=== PATIENT | female | born 2000 | race Caucasian/White ===

== ENCOUNTER 2020-08-22 17:03 | Emergency (ER) | payer BC, OTHER, SELFPAY ==
[2020-08-22] VITALS (14 sets, daily range): BP systolic 112–131; BP diastolic 63–89; PULSE 62–114; RESP 11–23; TEMP 36.9; O2SAT 94–98
[2020-08-22] MEDS: FAMOTIDINE 20 MG/2 ML VIAL IV PUSH (17:21)
[2020-08-22] MEDS: EPINEPHrine HCL INJ 1 MG/ML AMPUL 0.3 MG IM (17:21)
[2020-08-22] MEDS: methylPREDNISolone SOD SUCC 125 MG VIAL IV PUSH (17:21)
[2020-08-22] MEDS: ALBUTEROL SULFATE NEB 2.5 MG/0.5 ML INH 5 MG INHALATION (17:51)
[2020-08-22] MEDS: IPRATROPIUM BR 0.02% INH SOLN 0.5 MG/2.5 ML VIAL INHALATION (17:51)
--- NOTE | 2020-08-22 18:46 | ED.ALLEREA ---
HPI - Allergic Reaction General Chief complaint: Allergic Reaction Stated complaint: allergic reaction Time Seen by Provider: 08/22/20 17:06 Source: patient Mode of arrival: ambulatory Limitations: no limitations History of Present Illness HPI narrative: This patient is a 19 year old female who presents for evaluation of an allergic reaction. She states just prior to arrival she developed itching, increase warmth and shortness of breath. She states she just finished eating lunch but she did not eat anything out of the ordinary. She denies working any new material. She states she started feeling warm all over. She has itching to her eye and face. She has hives all over. She denies any allergies. She states when she is around her friend's cat she developed stuffy nose and congestion but she has never developed hives. She is not aware of any pet contacts. 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 Related Data Allergies Allergy/AdvReac Type Severity Reaction Status Date / Time No Known Allergies Allergy Verified 08/22/20 17:21 Review of Systems Review of Systems: All systems reviewed & are unremarkable except as noted in HPI and below PMFSH Past Medical History Medical History (Updated 08/23/20 @ 00:00 by Felicia Dashelbie) Patient denies medical problems Surgical History Surgical History (Updated 08/22/20 @ 18:53 by Ariela Olivares MD) No pertinent past surgical history Social History Social History (Updated 08/22/20 @ 18:53 by Ariela Olivares MD) Smoking status: Never smoker Exam Const: General: alert Orientation/consciousness: patient oriented x3 HENMT: Other: external ears red and mildly swollen, facial hives Eyes: Pupils: Equal, round and reactive pupils present EOM: EOMs intact bilaterally Resp: Effort & Inspection: normal respiratory effort Auscultation: wheezes Other: able to speak in complete sentences Cardio: Rate: tachycardic Rhythm: regular rhythm Heart sounds: no murmurs GI: GI Palp: Yes Soft to palpation, No Tenderness to palpation present (GI) and No Guarding due to palpation present (GI) Auscultation: normal bowel sounds Skin: Other: diffuse hives Neuro: General: patient oriented x3 and moves all extremities Course Reevaluation(s) Reevaluation #1: Patient states she feels better. Her lungs are clear. I discussed with patient and her mother that we will monitor longer. Date: 08/22/20 Time: 18:54 Reevaluation #2: Patient feels better. hives have resolved. She has no wheezing or shortness of breath. No airway issues Date: 08/22/20 Time: 20:01 Vital Signs Vital signs: Vital Signs Pulse Rate 114 H 08/22/20 17:08 Respiratory Rate 13 08/22/20 17:08 Blood Pressure 131/82 08/22/20 17:08 Pulse Oximetry 94 08/22/20 17:08 Temperature 98.4 F 08/22/20 17:11 Pulse Rate 78 08/22/20 20:00 Respiratory Rate 16 08/22/20 20:00 Blood Pressure 125/63 08/22/20 20:00 Pulse Oximetry 97 08/22/20 20:00 Discharge Plan Discharge Clinical Impression: Allergic reaction, Anaphylaxis Patient Disposition: Home, Self-Care Condition: Stable Instructions: Anaphylaxis (ED), Allergies (ED) Additional Instructions: Today you were evaluated for an allergic reaction. If you develop itching or rash again you can take benadryl or medication such as claritin , noemy or zyrtec. You can take 50 mg benadryl every 6 hours as needed for itching or rash. If you develop difficulty breathing, chest pain, tongue or lips swelling return to ER immediately . Prescriptions: New prednisone 50 mg tablet 50 mg PO DAILY Qty: 6 RF: 0 famotidine [Pepcid] 20 mg tablet 20 mg PO DAILY Qty: 14 RF: 0 epinephrine [EpiPen] 0.3 mg/0.3 mL auto-injector 0.3 ml IM ONCE Qty: 1 RF: 0 Follow-up/Referrals: PHYSICIAN,CORK GRINDER [Primary Care Provider] - Ever Yo MD [Physician] -
== END 2020-08-22 20:30 | disposition home or self-care (01) ==
PROVIDERS: Emergency Provider General Practice
DX: T78.2XXA Anaphylactic shock, unspecified, initial encounter (principal)
CPT/HCPCS: 94640; 96372; 96374; 96375; 99284; J0171; J2930

== ENCOUNTER 2022-06-11 06:59 | Observation (INO) | payer OTHER, MEDICAID, SELFPAY ==
[2022-06-11 07:15] VITALS: BP 119/68; PULSE 62
[2022-06-11 07:20] VITALS: BMI 23.9
[2022-06-11 07:30] VITALS: BP 110/68; PULSE 63
[2022-06-11 07:45] VITALS: BP 128/74; PULSE 71
[2022-06-11 08:00] VITALS: BP 118/78; PULSE 72
--- NOTE | 2022-06-11 08:22 | OBADM ---
This patient, Toña Dejesus, admitted to the OB room OB Post [facility] for observation. Patient/family oriented to hospital policies and general routines including ID bracelet, bed and alarms, visiting hours, pain management, procedures, bathroom and other care routines, personal items, smoking policy, room service/diet, and visiting hours. Patient/Family are encouraged to report perceived risks to care and to ask questions if they do not understand what they are told or what they should do.
[2022-06-11 08:37] LABS: Appearance Urine Clear (Clear); Bilirubin Urine Negative (Negative); Blood Urine 1+ (Negative); Color Urine Yellow (Yellow); Glucose Urine UA Negative (Negative); Ketones Urine Negative (Negative); Leukocyte Esterase Ur 1+ LEU/UL (NEGATIVE); Nitrate Urine Positive (Negative); Protein Urine Negative (Negative); Urobilinogen Urine 0.2 mg/dL (<2.0); pH Urine 6.5 (5.0-9.0)
[2022-06-11 08:42] LABS: Bacteria Urine Trace /hpf; Mucus Urine Rare /lpf; Squamous Epithelial Cell Urine Few /hpf (Few); WBC Urine 21-30 /hpf (0-3)
[2022-06-11 08:45] LABS: Add Urine Microscopic? YES
--- NOTE | 2022-06-12 16:18 | PM.OBTRLD ---
OB - Triage/Final Diagnosis Visit Information Reason for evaluation: threatened labor Comments/Additional reasons for admission: I have assessed the risk for this patient, Toña Dejesus, and determined that she would benefit from observation care. Evaluation Laboratory results: Laboratory Tests 06/11/22 07:33 Urine Color Yellow Urine Appearance Clear Urine pH 6.5 Ur Specific [place] 1.020 Urine Protein Negative Urine Glucose (UA) Negative Urine Ketones Negative Ur Blood (Man) 1+ H Urine Nitrate Positive Urine Bilirubin Negative Urine Urobilinogen 0.2 Ur Leukocyte Esterase 1+ H Urine RBC 6-10 H Urine WBC 21-30 H Ur Squamous Epith Cells Few Urine Bacteria Trace Urine Mucus Rare
== END 2022-06-11 09:06 | disposition home or self-care (01) ==
PROVIDERS: Admitting Provider Obstetrics & Gynecology; Visit Provider Obstetrics & Gynecology
DX: O47.02 False labor before 37 completed weeks of gestation, second trimester (principal); Z3A.24 24 weeks gestation of pregnancy
CPT/HCPCS: 81001; 87086; 87088; G0378; G0379

== ENCOUNTER 2022-10-02 16:48 | Inpatient (IN) | payer OTHER, MEDICAID, SELFPAY ==
[2022-10-02] VITALS (26 sets, daily range): BP systolic 115–139; BP diastolic 58–92; PULSE 47–76; TEMP 36.6; BMI 27.6
--- NOTE | 2022-10-02 17:39 | LDADM ---
This patient, Toña Dejesus, was admitted to Labor/Delivery/Recovery 104 on 10/02/22 at 16:48. Plans for labor, pain management and were discussed with patient. Patient/family oriented to hospital policies and general routines including ID bracelet, bed and alarms, visiting hours, pain management, procedures, bathroom and other care routines, personal items, smoking policy, room service/diet and guest tray routines, security routines, and visiting hours. Patient/Family are encouraged to report perceived risks to care and to ask questions if they do not understand what they are told or what they should do. See OBIX for further documentation.
[2022-10-02 17:41] LABS: Basophils Percent Auto 0.2 % (0.2-1.2); Eosinophils Absolute Auto 0.1 K/mm3 (0-0.3); Hematocrit 29.2 % (37.0-47.0); Hemoglobin 10.1 g/dL (12.0-15.0); Immature Granulocyte Absolute 0.03 K/mm3 (0.00-0.031); Immature Granulocyte Percent A 0.3 % (0-0.5); Lymphocytes Absolute Auto 1.72 K/mm3 (0.9-3.2); Lymphocytes Percent Auto 17.3 % (18.3-44.2); Mean Corpuscular HGB Conc 34.6 g/dl (32-36); Mean Corpuscular Hemoglobin 30.9 pg (26-34); Mean Corpuscular Volume 89.3 fl (80-100); Mean Platelet Volume 9.7 fl (7.4-10.4); Monocytes Absolute Auto 1.1 K/mm3 (0.1-0.6); Monocytes Percent Auto 11.3 % (2.6-8.5); Neutrophils Percent Auto 69.9 % (45.5-73.1); Platelet Count Result 240 k/mm3 (150-375); Red Blood Count 3.27 M/mm3 (4.2-5.4); Red Cell Distribution Width 13.2 % (11.5-14.5)
[2022-10-02] MEDS: DINOPROSTONE 10 MG VAG INSERT VAGINAL (17:56)
[2022-10-02] MEDS: LACTATED RINGERS 1,000 ML 125 ML IV CONT (23:25)
[2022-10-03] VITALS (195 sets, daily range): BP systolic 75–151; BP diastolic 51–104; PULSE 32–131; RESP 14–16; TEMP 36.1–36.8; O2SAT 90–100
[2022-10-03] MEDS: fentaNYL CITRATE INJ (*CRX) 100 MCG/2 ML VIAL 50 MCG IV PUSH (00:06)
[2022-10-03] MEDS: LACTATED RINGERS 1,000 ML 125 ML IV CONT (02:42)
--- NOTE | 2022-10-03 02:51 | WPDANESEPPF ---
Anes - Initial Pre Proc Eval Procedure: Labor Epidural Date/Time: 10/03/22 02:51 Surgeon: Dereck Cancino MD Pre Op Diagnosis: Pain c contractions Pre Op Diagnosis: Induction of Labor Patient Data Age: 22 Gender: F Height: 1.75 m Weight: 85 kg Last Vital Signs Temp 36.2 C L 10/03/22 02:28 Pulse 60 10/03/22 02:46 BP 129/75 10/03/22 02:46 O2 Del Method Room Air 10/02/22 17:39 Allergies Allergy/AdvReac Type Severity Reaction Status Date / Time No Known Allergies Allergy Verified 08/22/20 17:21 Home Medications Medication Instructions Recorded Confirmed Type epinephrine 0.3 mg/0.3 mL 0.3 ml IM ONCE #1 ea 08/22/20 Rx injection, auto-injector (EpiPen) prenat.vits,viri,[id number] 1 tablet PO DAILY 09/06/22 09/06/22 History Laboratory Tests 10/02/22 10/02/22 10/02/22 17:13 17:13 17:13 WBC 10.0 K/mm3 K/mm3 (4.5-10.0) RBC 3.27 M/mm3 L M/mm3 (4.2-5.4) Hgb 10.1 g/dL L g/dL (12.0-15.0) Hct 29.2 % L % (37.0-47.0) MCV 89.3 fl fl (80-100) MCH 30.9 pg pg (26-34) MCHC 34.6 g/dl g/dl (32-36) RDW 13.2 % % (11.5-14.5) Plt Count 240 k/mm3 k/mm3 (150-375) MPV 9.7 fl fl (7.4-10.4) Immature Gran % (Auto) 0.3 % % (0-0.5) Neut % (Auto) 69.9 % % (45.5-73.1) Lymph % (Auto) 17.3 % L % (18.3-44.2) [place] % (Auto) 11.3 % H % (2.6-8.5) Eos % (Auto) 1.0 % % (0-4.4) Baso % (Auto) 0.2 % % (0.2-1.2) Lymph # (Auto) 1.72 K/mm3 K/mm3 (0.9-3.2) [place] # (Auto) 1.1 K/mm3 H K/mm3 (0.1-0.6) Eos # (Auto) 0.1 K/mm3 K/mm3 (0-0.3) Baso # (Auto) 0.0 K/mm3 K/mm3 (0.0-0.1) Abs Immat Gran (auto) 0.03 K/mm3 K/mm3 (0.00-0.031) Absolute Neuts (auto) 7.0 K/mm3 H K/mm3 (1.3-6.7) Absolute Nucleated RBC 0.0 K/mm3 K/mm3 (0.0-0.012) Nucleated RBC % 0.0 % % (0.0-0.2) RPR Pending Blood Type O Positive Antibody Screen Negative Patient hx anesthesia problems: none Family hx anesthesia problems: none Results Review: All pre-operative results and documents have been reviewed as part of the pre-operative evaluation. [facility]LY [facility] Past Medical History Medical History Patient denies medical problems Surgical History Surgical History No pertinent past surgical history Social History Social History Smoking status: Never smoker Substance use: current Last use: 09/05/2022 Lack of Transportation: No Lack of Food: Never True Current Housing: I Have Housing Concerned About Future Housing: No Difficulty Paying Gas/Electric Bills: No Difficulty Paying for Meds: No Currently Unemployed: No Education: Don't Know Difficulty w/ Childcare or Family Care: No Spiritual care concerns: No Anes - Eval Final PreProcedure Day of Procedure 10/03/22 02:51 Patient weight: normal Airway: Mallampati scale class II Neurological: alert and oriented Last oral intake: 2 hours ASA classification: II Emergent: no Anesthetic plan: proceed Anesthesia type and monitoring: regional spinal Results Review: All pre-operative results and documents have been reviewed as part of the pre-operative evaluation. Informed Consent: The patient's anesthetic plan and its attendant risks and benefits were discussed with the patient/family/POA. Questions were solicited and answers provided to the satisfaction of the patient/family/POA.
--- NOTE | 2022-10-03 03:15 | WPDANESEPN ---
Anes - Epidural Procedure Note Date/Time: 10/03/22 03:15 Consent: I have discussed with the patient/family/POA, the placement of an epidural catheter and the use of epidural narcotic/local anesthetic for labor analgesia and/or postoperative pain management, including associated potential risks, benefits, complications and side effects. I have discussed alternative methods of labor analgesia and/or postoperative pain management. The patient/family/POA, understand(s) and wish(es) to proceed with epidural narcotic/local anesthetic for labor analgesia and/or postoperative pain management. Time-Out: A pre-procedural Time-Out was completed immediately before starting the procedure and confirmed: Patient Identification, Site, Procedure, Patient Position and the Availability of Requisite Equipment. Clinical Indications: Pain c contractions Epidural Insertion Note Patient position: sitting Skin prep: chlorhexidine and sterile drape Needle: 18g Tuohy-Schliff Catheter: 20g Unstyleted Technique: Loss of resistance. Level of insertion: L3/4 Catheter skin yudy (cm): 5 Length in epidural space (cm): 10 Skin anesthesia: lidocaine 1% Test dose: 1.5% Lidocaine with [id number] Epi, negative for subarachnoid Inj and negative for intravascular Inj Time of test dose: 03:04 Observations: tolerated well Complications: none
[2022-10-03] MEDS: OXYTOCIN 30 UNITS/NS 500 ML 30 UNITS/500 ML BAG 6 UNITS IV CONT (04:25)
[2022-10-03 08:14] LABS: Rapid Plasma Reagin Non-Reactive (NonReactive)
--- NOTE | 2022-10-03 08:50 | WPDOBADMIT ---
Obstetrics - Admit Note Admission Note: record reviewed. Additions to the history and/or subsequent changes in the physical findings follow. 22 y/o G1 at 40 2/7 weeks here for induction. Cervidil overnight. Had SROM at 2230. Now comfortable with epidural. Receiving oxytocin. GBS neg. AVSS NST reactive TOCO: contractions every 2-3 min ABD soft, nontender, gravid, vertex EXT nontender Cervix 6/80/0 A: IUP at term. P: Oxytocin. Anticipate .
--- NOTE | 2022-10-03 12:17 | PM.OBPNLAB ---
Pain Control Date/time seen: 10/03/22 12:17 Comments: Feeling more pressre. Pelvic Exam Dilation (cm): 10 Effacement (%): 100 station: +1 Contractions Contraction frequency: 3 Contraction pattern: Regular Status status: Category l Assessment and Plan Comments: Begin pushing.
--- NOTE | 2022-10-03 13:30 | PM.OBPRVD ---
OB - Delivery Note Procedure Delivery date: 10/03/22 Procedure: Induction of labor with Induction method: Per Cervidil Protocol Delivery augmentation: Pitocin Delivery monitor: External FHT and External Uterine Route of delivery: Laceration Description: Perineal - 2nd Degree Delivery repair: vicryl (3-0) Specimen: Yes (cord blood, placenta) Quantitative Blood Loss (ml): 220 Anesthesia type: Epidural Disposition: PACU Complications: None Narrative: 22 y/o G1 at 40 2/7 weeks gestation who presented to the hospital for induction of labor. Cervidil was placed. She had SROM of clear fluid. Cervidil was withdrawn and oxytocin was administered intravenously. She received an epidural for pain control. Her labor progressed and her cervix dilated completely. She pushed with good effort and delivered the 's head to the perineum. A loose nuchal cord was splinted and the body delivered. The cord was reduced and the nose and mouth were bulb suctioned. After a delay, the cord was clamped and cut. The infant was handed off the field. Cord blood was collected. The placenta delivered spontaneously and was grossly normal in appearance. The usual 3 vessel cord was noted. A second degree midline perineal laceration was sustained. This was reapproximated using 3 0 Vicryl in the usual layered fashion. Excellent hemostasis resulted as did excellent reapproximation of the normal anatomy. Needle and instrument counts were correct. The patient was taken to recovery room in stable condition. The infant went to the nursery in stable condition. I was present and scrubbed for the entire delivery. [place] Baby Date of : 10/03/22 Time of : 13:18 Weeks of gestation at delivery: 40 gender: Female Weight (pounds): 8 Weight (ounces): 4 presentation: vertex position: Left Occiput Anterior Placenta delivery description: Spontaneous and Normal Configuration Cord Vessel Description: 3 Vessels, Nuchal Cord and Delayed Cord Clamping score one minute: 9 score five minutes: 9
--- NOTE | 2022-10-03 13:33 | PM.OBDSVD ---
DS: Admitting Diagnosis Discharge Date 10/05/22 Admitting Diagnosis IUP at 40 weeks DS: Discharge Diagnosis Discharge Diagnosis (1) (normal spontaneous vaginal delivery): Code(s): O80 - Encounter for full-term uncomplicated delivery Status: Acute OB - DS: Summary OB Procedures : None OB Procedures Intrapartum: Spontaneous Vag Delivery OB Procedures: : None Time Spent with Patient Time attestation: Total time spent providing and/or coordinating discharge services: DS: Data Data Completed and Pending Labs on day of discharge: Labs from last 24 hours 10/02/22 10/02/22 10/02/22 17:13 17:13 17:13 WBC 10.0 RBC 3.27 L Hgb 10.1 L Hct 29.2 L MCV 89.3 MCH 30.9 MCHC 34.6 RDW 13.2 Plt Count 240 MPV 9.7 Immature Gran % (Auto) 0.3 Neut % (Auto) 69.9 Lymph % (Auto) 17.3 L [place] % (Auto) 11.3 H Eos % (Auto) 1.0 Baso % (Auto) 0.2 Lymph # (Auto) 1.72 [place] # (Auto) 1.1 H Eos # (Auto) 0.1 Baso # (Auto) 0.0 Abs Immat Gran (auto) 0.03 Absolute Neuts (auto) 7.0 H Absolute Nucleated RBC 0.0 Nucleated RBC % 0.0 RPR Non-reactive Blood Type O Positive Antibody Screen Negative Discharge Plan Discharge Attending physician on discharge: Jeff Fong Discharging Clinician: Jeff Fong Patient Disposition: Home, Self-Care Activity: pelvic rest Diet: regular Discharge Instructions: Call or return if temperature above 100.4? F, increased abdominal pain, increased vaginal bleeding or any new problems. Stand Alone Forms: General Discharge Information Follow-up/Referrals: Dereck Lewis MD [Physician] - 6 Weeks Discharge Medications: New ibuprofen 600 mg tablet 600 mg PO Q6H PRN (Reason: cramps) Qty: 30 0RF ferrous sulfate 325 mg (65 mg iron) tablet 325 mg PO DAILY Qty: 30 0RF Continued #2 Tablet 1 tablet PO DAILY epinephrine [EpiPen] 0.3 mg/0.3 mL auto-injector 0.3 ml IM ONCE Qty: 1 0RF Rx Instructions: as a single dose; may repeat once Date of admission: 10/02/22 16:48 Primary Care Provider: UNKNOWN,DOCTOR Admitting Provider: Dereck Lewis Attending physician on admission: Dereck Lewis Condition: Stable
[2022-10-03] MEDS: OXYTOCIN 30 UNITS/NS 500 ML 30 UNITS/500 ML BAG 125 UNITS IV CONT (13:35)
[2022-10-03] MEDS: LORATADINE 10 MG TABLET (14:53)
[2022-10-03] MEDS: IBUPROFEN 600 MG TABLET PO (15:57)
[2022-10-03] MEDS: ACETAMINOPHEN 325 MG TABLET 650 MG PO (18:37)
[2022-10-04] MEDS: ACETAMINOPHEN 325 MG TABLET 650 MG PO ×2 (03:11→16:42)
[2022-10-04 04:52] LABS: Hematocrit 26.4 % (37.0-47.0); Hemoglobin 8.8 g/dL (12.0-15.0)
[2022-10-04 08:00] VITALS: PULSE 62; RESP 18; O2SAT 100
[2022-10-04 08:05] VITALS: BP 120/68; PULSE 62; RESP 18; TEMP 37.3; O2SAT 100
[2022-10-04] MEDS: DOCUSATE SODIUM 100 MG CAPSULE PO ×2 (08:11→16:42)
[2022-10-04] MEDS: IBUPROFEN 600 MG TABLET PO ×3 (08:11→20:03)
[2022-10-04] MEDS: MULTIVIT/MIN/PREN/FOL AC/IRON TABLET 1 TAB PO (08:11)
[2022-10-04] MEDS: POLYSACCHARIDE IRON COMPLEX 150 MG CAPSULE PO ×2 (08:11→16:42)
--- NOTE | 2022-10-04 08:51 | PM.OBPNVD ---
OB - PN: Subj Subjective Date/time seen: 10/04/22 08:51 Narrative: Pain OK. OB - PN: Obj Data Labs 10/04/22 03:17 Labs: Laboratory Results - last 24 hr 10/04/22 03:17 Hgb 8.8 L Hct 26.4 L OB - PN A/P Plan Comments: A: PPD#1, doing well. P: Routine care. Exam Psych: Other: AVSS ABD soft, nontender, fundus firm EXT nontender
--- NOTE | 2022-10-04 09:30 | WPDANLDPN2 ---
Anes-Prog Note L&D Date/Time: 10/04/22 09:30 Comfortable throughout: labor and delivery Neuraxial method: epidural Epidural/Spinal procedure site: tender Neuro status: Neuro function grossly intact. Cardiovascular status: normal Respiratory status: normal Airway patency: baseline Mental status: baseline Post-Op hydration status: normal Vital Signs: Last Vital Signs Temp 36.5 C 10/03/22 18:34 Pulse 69 10/03/22 18:34 Resp 16 10/03/22 18:34 BP 126/82 10/03/22 18:34 Pulse Ox 100 10/03/22 16:00 O2 Del Method Room Air 10/03/22 16:00 Pain score (VAS): 3/10 I/O: Intake & Output 10/03/22 10/04/22 10/04/22 23:59 07:59 15:59 Intake Total 500 Balance 500 Post-procedural complaints: none Patient feedback: Patient satisfied with anesthetic care.
[2022-10-04 12:32] VITALS: BP 122/67; PULSE 68; RESP 16; TEMP 36.8; O2SAT 100
[2022-10-04 13:19] VITALS: PULSE 68; RESP 16; O2SAT 100
[2022-10-04] MEDS: BENZOCAINE 20% AER SPR (*SP) 56 GM CAN 1 SPRAY TOPICAL (14:10)
[2022-10-04] MEDS: WITCH HAZEL 40 PADS 1 PAD TOPICAL (14:10)
[2022-10-04] MEDS: LANOLIN (LANSINOH) 7.5 GM CREAM 1 APPLIC TOPICAL (14:10)
--- NOTE | 2022-10-04 16:39 | PC.NURSE ---
[id number] Introductions were made, then consulted with patient to assess needs related to . Mother led the conversation with her?plans to feed?her infant and the?experience so far. Resources provided for inpatient and outpatient services with the feeding sheet, mom/baby guide and name written on the white board. Mother voiced understanding of information and will call if there is a request for assistance. Reported to the primary RN. 1352 -Purposefully rounded. Mother is in the restroom. Father of baby will have her call later after skin to skin time with infant on mother showing feeding cues or not waking to breastfeed. [phone] Patient called RN to the room. We discussed and I answered questions and concerns. After infant demonstrated feeding cues infant was encouraged to the breast by mother with cross cradle positioning, then switched to cradle hold. Mother verbalized understanding of how to visualize suck/swallow ratios and listen for drinking at the breast. Infant was able to maintain latch without discomfort to mother. Nipple care reviewed with optimal latch and good positioning. Reminding mother of comfort measures of healing with a warm and wet washcloth to rinse breast, then leave open to air-dry as needed. Reviewed good handwashing when or touching the breast/nipples to prevent infection. Resources used to facilitate learning were used with the tool, mom and baby guide. Mother voiced understanding of skin to skin, stimulating with massage touch, responsive feedings, hand expressed colostrum, talking to infant to encourage if it has been 2 -2.5 hours since the start of the last , to call if does not latch, or if there is discomfort with . Resources provided for inpatient/outpatient with business card, feeding sheet and the mom/baby guide. Parents voiced understanding of information, demonstrated learning and will call if there is a request for assistance. Reported to the primary RN.
[2022-10-04 19:15] VITALS: BP 125/87; PULSE 76; RESP 16; TEMP 36.7
--- NOTE | 2022-10-04 19:15 | PC.NURSE ---
Patient instructed to view the discharge video Mother & Baby Care, The First Two Weeks . Patient was given the opportunity and encouraged to ask questions. Patient verbalized understanding of information shared and has been given the mother/baby guide for home reference.
[2022-10-05] MEDS: IBUPROFEN 600 MG TABLET PO ×2 (04:27→11:44)
[2022-10-05] MEDS: POLYSACCHARIDE IRON COMPLEX 150 MG CAPSULE PO (07:57)
[2022-10-05] MEDS: MULTIVIT/MIN/PREN/FOL AC/IRON TABLET 1 TAB PO (07:57)
[2022-10-05] MEDS: DOCUSATE SODIUM 100 MG CAPSULE PO (07:57)
[2022-10-05 08:00] VITALS: PULSE 51; RESP 18; O2SAT 100
[2022-10-05 08:20] VITALS: BP 132/85; PULSE 51; RESP 18; TEMP 36.6; O2SAT 100
--- NOTE | 2022-10-05 11:59 | PM.OBPNVD ---
OB - PN: Subj Subjective Date/time seen: 10/05/22 11:59 Narrative: Pain OK. Would like to go home. OB - PN: Obj Data Labs 10/04/22 03:17 OB - PN A/P Plan Comments: A: PPD#2, doing well. P: Home to f/u 6 weeks. Exam Psych: Other: AVSS ABD soft, nontender, fundus firm EXT nontender
--- NOTE | 2022-10-05 12:57 | PC.NURSE ---
[id number] RN was consulted to the room to assist with latching that is sleepy. Mother states there was a at 0800 for 10 min with no pain. Reviewed S2S, stimulation and attempted to latch infant at the breast. Infant holds the nipple in the mouth. Infant is content with hands open. Mother was encouraged to placed infant S2S and call when feeding cues are visualized. [id number] Mother led the conversation with her experience and plan to feed her so far and her ability to independently latch infant optimally without discomfort. Reminded parents to use good handwashing technique to prevent infection. Mother is feeding appropriately for growth of infant and understands stimulating to eat if needed. has had adequate feedings in the last 24 hours meets the outcomes for weight, output and jaundice at this time. Mother states she is confident to continue effectively her infant at home. We discussed the output needed since it has been almost 12 hours since the last void. We discussed milk production expectations, however; not guaranteed. We consulted together with father of baby and maternal mother on how to make sure is swallowing at the breast, optimal positioning at the breast, signs of an effective latch and to encouraged a deep latch with gentle hand compression to encourage more milk swallows aiming for every two hours with support persons giving her a 4-5 hour rest period if possible at least once in a 24 hour period. Mother states she has two outside resources in the community and RN encouraged reaching out to them for support. Reinforced understanding of milk production, transition of milk, signs of adequate intake, transition of stool, prevention/relief of engorgement, responsive watching for feeding cues, the different methods of stimulating infant to breastfeed 2-3 hours after the start of the last feeding, community resources, encouraged good food intake with adequate fluid, balanced with rest, medication information reviewed per [employer] and when to call a provider using the resource of the mom and baby guide. Mother voiced understanding of the education shared. Reported to the primary RN.
[2022-10-06 11:20] VITALS: BP 130/84; PULSE 71; RESP 16; TEMP 36.6; O2SAT 100
== END 2022-10-05 15:30 | disposition home or self-care (01) | DRG 807 ==
LOC: ANHLDR 10-03 13:34 → ANHOB2 10-05 13:36 → ANHLDR 10-08 11:39 → ANHOB2 10-08 11:39
PROVIDERS: Admitting Provider Obstetrics & Gynecology; Visit Provider Obstetrics & Gynecology
DX: O69.81X0 Labor and delivery complicated by cord around neck, without compression, not applicable or unspecified (principal); Z37.0 Single live birth; Z3A.40 40 weeks gestation of pregnancy; O70.1 Second degree perineal laceration during delivery
CPT/HCPCS: 36415; 85014; 85018; 85025; 86592; 86850; 86900; 86901; A9270; J2590; J2795; J3010; J7120